=== PATIENT | male | born 1980 | race Caucasian/White ===

== ENCOUNTER 2016-07-31 12:02 | Emergency (ER) | payer OTHER ==
[~2016-07-31] VITALS: Ht 172.7 cm; Wt 82.7 kg
[2016-07-31 12:03] VITALS: BP 151/106
== END 2016-07-31 12:55 | disposition left against medical advice (07) ==
LOC: ED 12:35
DX: M54.5 Low back pain (principal); Z53.21 Procedure and treatment not carried out due to patient leaving prior to being seen by health care provider